=== PATIENT | male | born 1945 | race Caucasian/White ===

== ENCOUNTER 2024-05-30 06:51 | Day surgery (SDC) | payer OTHER ==
[~2024-05-30 06:51] MED LIST: CIPROFLOXACIN500 MG PO; FLAGYL500MG PO; PROTONIX40 MG PO
[2024-05-30] MEDS ORDERED: FLUMAZENIL 0.5 MG/5 ML ML IV ONE (13:45)
[2024-05-30] MEDS ORDERED: MIDAZOLAM HCL 2 MG/2 ML VIAL IV ONE (13:45)
[2024-05-30] MEDS ORDERED: DIPHENHYDRAMINE HCL 50 MG/ML VIAL 1ML IV ONE (13:45)
[2024-05-30] MEDS ORDERED: fentaNYL CITRATE 50 MCG/ML AMPUL IV ONE (13:45)
== END 2024-05-30 14:35 | disposition home or self-care (01) ==
LOC: AMB-ENDOS 06:51
PROVIDERS: ATTEND Surgery
DX: D12.8 Benign neoplasm of rectum (principal); K57.30 Diverticulosis of large intestine without perforation or abscess without bleeding; K52.89 Other specified noninfective gastroenteritis and colitis